=== PATIENT | male | born 1950 | race Caucasian/White ===

== ENCOUNTER 2020-01-31 02:24 | Emergency (ER) | payer OTHER ==
[~2020-01-31] VITALS: Ht 172.7 cm; Wt 98.4 kg
[2020-01-31 02:40] VITALS: BP 110/77
[2020-01-31] MEDS ORDERED: HYDROcodone/APAP 5/325 MG 1 TAB TAB PO ONE (03:05)
[2020-01-31 04:29] VITALS: BP 146/76
== END 2020-01-31 05:44 | disposition home or self-care (01) ==
LOC: MED 02:24
DX: R51 Headache (principal); E11.9 Type 2 diabetes mellitus without complications; I10 Essential (primary) hypertension; K42.0 Umbilical hernia with obstruction, without gangrene; M25.561 Pain in right knee; M54.5 Low back pain; Z88.0 Allergy status to penicillin; Z85.05 Personal history of malignant neoplasm of liver; Z85.841 Personal history of malignant neoplasm of brain
CPT/HCPCS: 70450; 72100; 73562; 93005; 99285